=== PATIENT | male | born 1990 | race Native Hawaiian/Other Pacific Islander ===

== ENCOUNTER 2016-12-05 19:06 | Emergency (ER) | payer OTHER ==
[~2016-12-05] VITALS: Ht 188 cm; Wt 113.9 kg
[2016-12-05 20:13] VITALS: BP 13130/7; TEMP 98.4
== END 2016-12-05 20:14 | disposition home or self-care (01) ==
LOC: ED 19:06
DX: N45.1 Epididymitis (principal)
CPT/HCPCS: 81000; 99283

== ENCOUNTER 2017-12-21 16:05 | Emergency (ER) | payer OTHER ==
[~2017-12-21] VITALS: Ht 188 cm; Wt 124.7 kg
[2017-12-21 16:41] LABS: PLATELET COUNT 234 K/uL (142-355)
[2017-12-21 16:51] LABS: POTASSIUM 3.6 mmol/L (3.6-5.2)
[2017-12-21 17:15] VITALS: BP 135/74; TEMP 97.8
== END 2017-12-21 17:15 | disposition home or self-care (01) ==
LOC: ED 16:05
DX: L73.2 Hidradenitis suppurativa (principal); B95.8 Unspecified staphylococcus as the cause of diseases classified elsewhere; L30.9 Dermatitis, unspecified; L02.411 Cutaneous abscess of right axilla
CPT/HCPCS: 36415; 80053; 85027; 99283

== ENCOUNTER 2019-03-09 11:06 | Emergency (ER) | payer OTHER ==
[~2019-03-09] VITALS: Ht 188 cm; Wt 113.4 kg
[2019-03-09 11:22] VITALS: BP 134/81; TEMP 98.4
== END 2019-03-09 13:00 | disposition home or self-care (01) ==
LOC: ED 11:06
DX: M23.92 Unspecified internal derangement of left knee (principal); X50.1XXA Overexertion from prolonged static or awkward postures, initial encounter
CPT/HCPCS: 99282; J1885